=== PATIENT | male | born 1980 | race African-American/Black ===

== ENCOUNTER 2016-08-05 23:59 | Emergency (ER) | payer SELFPAY ==
--- NOTE | ~2016-08-05 | CR181 ---
[facility] A Service of [facility] & [facility] RADIOLOGY TEXT RESULTS PATIENT: SIMONE WINCHESTER LOCATION: [facility] : [birth year] UNIT #: [id number] AGE: [address]: Hailey Persaud SEX: M ORDER DR: [id number] [facility] [address] [place], [place] [address] [id number] E MR#: [id number] Acc #: [id number] NAME: SIMONE WINCHESTER : 1980 SEX: M STUDY DATE/TIME: 08/06/2016 01:55 UNIT: [facility] ROOM: STUDY DESCRIPTION: CR Lumbar Spine 2 or 3 Views Attending Physician: Hailey Persaud Pa-C Ordering Physician: Hailey Persaud Pa-C Primary Care Physician: Primary Care Physician No MEDICAL IMAGING REPORT This report is preliminary unless electronic signature is present EXAM Lumbar spine, 08/06/2016 at 01:55 INDICATION Low back pain that started at 7 o'clock last night after lifting a heavy object. FINDINGS 3 views of the lumbar spine are compared with 09/09/2015. No compression fractures are seen. Vertebral body heights and disc spaces remain normal. Minimal retrolisthesis of L5 on S1 is stable. IMPRESSION Minimal stable L5-S1 spondylolisthesis. Otherwise normal lumbar spine. Dictated by... Landry Musa Jr., M.D. THIS IS AN ELECTRONICALLY VERIFIED REPORT Landry Musa Jr., M.D. at 08/06/2016 6:08 AM HOMERO/[place] TD: 08/06/2016 05:10 JOB #: [id number] MEDICAL IMAGING REPORT Page 1 of 1 COPY
[~2016-08-05 23:59] MED LIST: FIORICET 50-321 EACH PO; FLEXERIL PO; FLEXERIL10 MG PO; IBUPROFEN PO; KEFLEX PO; LORTAB 5/500 TA1 TA1 PO; NO MEDICATIONS; NORCO 5/325 TAB1 TAB PO; PERCOCET5/325 PO; PHENERGAN PO; PHENERGAN25 MG PO; TRAMADOL HCL50 M1 PO; VICODIN 5/500 T1 TAB PO
== END 2016-08-06 02:55 | disposition home or self-care (01) ==
LOC: CED 23:59
DX: S39.012A Strain of muscle, fascia and tendon of lower back, initial encounter (principal); F17.210 Nicotine dependence, cigarettes, uncomplicated; X50.9XXA Other and unspecified overexertion or strenuous movements or postures, initial encounter; Y99.0 Civilian activity done for income or pay
CPT/HCPCS: 72100; 96372; 99283; J1885; J2360